=== PATIENT | male | born 1950 | race Caucasian/White ===

== ENCOUNTER 2019-06-25 01:33 | Inpatient (IN) | payer OTHER ==
[~2019-06-25] VITALS: Ht 177.8 cm; Wt 88.5 kg
[2019-06-25] VITALS (8 sets, daily range): BP systolic 76–165; BP diastolic 36–116
[2019-06-25] MEDS ORDERED: ADDERALL 10 MG10 MG PO (01:44)
[2019-06-25] MEDS ORDERED: AMBIEN 10 MG TA10 MG PO (01:45)
[2019-06-25 02:09] LABS: BASOPHILS 0.8 % (0.0-2.0); HEMATOCRIT 47.2 % (42.0-52.0); HEMOGLOBIN 16.2 gm/dL (14.0-18.0); LYMPHOCYTES 18.6 % (24.0-44.0); MCH 30.7 pg (26.0-34.0); MCHC 34.4 g/dL (28.0-37.0); MCV 89.2 fL (80.0-100.0); MONOCYTES 8.5 % (1.0-8.0); PLATELET COUNT 258 thou/uL (150-400); POLYS 71.1 % (36.0-66.0); RBC 5.29 mil/uL (4.50-6.00); WBC 11.3 thou/uL (4.0-11.0)
[2019-06-25 02:15] LABS: ANION GAP 12 mmol/L (7-16); BUN 20 mg/dL (7-18); CHLORIDE 101 mmol/L (98-107); CO2 25 mmol/L (21-32); CREATININE 1.5 mg/dL (0.7-1.3); GLUCOSE 98 mg/dL (74-106); SODIUM 138 mmol/L (136-145)
[2019-06-25 02:21] LABS: ALBUMIN 4.3 g/dL (3.4-5.0); DIRECT BILIRUBIN < 0.1 mg/dL (<0.1-0.3); LIPASE 179 U/L (73-393); SGOT 33 U/L (15-37); SGPT 28 U/L (30-65); TOTAL BILIRUBIN 0.4 mg/dL (<0.1-1.0); TOTAL PROTEIN 8.3 g/dL (6.4-8.2)
[2019-06-25 03:13] LABS: URINE BILIRUBIN NEGATIVE (Negative); URINE BLOOD NEGATIVE (Negative); URINE CLARITY CLEAR; URINE COLOR YELLOW; URINE GLUCOSE-RANDOM* NEGATIVE (Negative); URINE KETONES NEGATIVE (Negative); URINE LEUKOCYTES-REFLEX NEGATIVE (Negative); URINE NITRITE-REFLEX NEGATIVE (Negative); URINE PROTEIN (DIPSTICK) NEGATIVE (Negative); URINE SPECIFIC GRAVITY 1.015 (1.005-1.035); URINE UROBILINOGEN 0.2 E.U./dl (0.2-1.0)
[2019-06-25 03:29] LABS: LARGE PLATELETS FEW
[2019-06-25] MEDS ORDERED: KRISTALOSE20 GM PO (04:04)
--- NOTE | 2019-06-25 07:03 | NUR ---
Pt arrived on unit from ED @0610 via WC accompanied by staff. A/OX4, oriented to the room and made comfortable. C/o abd pain, orders obtained for pain meds awaiting pharmacy verification. Pt is up ad rommel encouraged to call for assistance as needed and agrees to do so. Call light/personal items placed within reach.
--- NOTE | 2019-06-25 09:42 | NUR ---
CONSULT [phone] COMPLETED. THIS [employer] ARCHITECT MET THE PATIENT. WE DID LIFE REVIEW ABOUT HIS LIFE AND FAMILY. WE DISCUSSED SOME DIFFERENT ISSUES. WE CONCLUDED N TD.
--- NOTE | 2019-06-25 11:31 | NUR ---
TOOK OVER CARE APPROX. 0700. A&OX4. PATIENT ON CLEAR LIQUIDS AND CAN ADVANCE TOLERATED. WILL HAVE COLONOSCOPY TOMORROW AND WILL BE NPO OF MIDNIGHT. PATIENT IS ANXIOUS ABOUT HIS CURRENT ILLNESS AND IS ASKING MANY QUESTIONS ABOUT PAIN MANGMENT AND HOW CARE WILL PROCEED. REFUSED FLU VACCINE.
--- NOTE | 2019-06-25 14:02 | NUR ---
PT ADMITTED RELATED TO ABD PAIN, N/V. CM REVIEWED CHART AND SPOKE WITH CARE TEAM. CM MET WITH PT AT BEDSIDE THIS DAY. PT IS A&O X4. CM ROLE INTRODUCED. PT INDICATED HE LIVES IN A CONDO WITH HIS SIG OTHER WITH ELEVATOR ACCESS. PT INDICATED HE HAD BEEN INDEPDENENT WITH GAIT AND ADLS [employer] PROFESSION[employer]. PT INDICATED HE PLANS TO RETURN HOME ONCE MEDICALLY STABLE. CM TO FOLLOW INDICATED WITH DC PLANNING.
--- NOTE | 2019-06-26 03:04 | NUR ---
ASSUMED CARE OF PT @1900 PT ASSESSED AT START OF SHIFT. ON CLEAR LIQUIDS AND NPO AT MIDNIGHT FOR A COLONOSCOPY IN THE AM. PT AMBULATING IN THE HALLWAY. NICOTINE PATCH INTACT IN RT ARM. NEW IV INSERTED 20 GUAGE IN RT FOREARM. PAIN MED GIVEN FOR MANAGEMENT SEE EMAREmanuel DEXTERIEN ALSO GIVEN FOR SLEEP. HOURLY ROUNDING DONE AND WILL CONT WITH POC TILL EOS.
[2019-06-26 08:31] VITALS: BP 135/77
--- NOTE | 2019-06-26 09:03 | NUR ---
Assess due to RD consult received. Admit with n/v and abdominal pain. Diverticulosis without diverticulitis noted. Further workup continues and pt npo for colonoscopy. Has had about 8-10 lb wt loss past month and decreased intake. Will follow up again 06/27 for more complete nutrition evaluation once GI procedure completed.
[2019-06-26 13:16] LABS: CALCIUM 9.1 mg/dL (8.5-10.1); CREATININE 1.2 mg/dL (0.7-1.3); POTASSIUM 3.9 mmol/L (3.5-5.1)
--- NOTE | 2019-06-26 13:30 | NUR ---
ASSUMED CARE OF PT AT 0700. PT PULLED OUT L WRIST IV AND LEFT AMA FOR AN HOUR, WAS ESCORTED BACK TO THE FLOOR BY SECURITY AND TOLD THAT IF IN ORDER TO LEAVE AN AMA FORM NEEDS TO BE FILLED OUT PER DOCTOR. PT WENT TO HAVE A COLONOSCOPY DONE AND WAS GIVEN PAIN MEDICATION BY IM. PT IS A&O X 4. BED IS IN LOWEST POSITION. CALL LIGHT WITHIN REACH. WILL CONTNIUE TO MONITOR THE PT.
[2019-06-26] MEDS ORDERED: TYLENOL325 MG PO (17:04)
[2019-06-26] MEDS ORDERED: PROTONIX40 M1 PO (17:04)
[2019-06-26] MEDS ORDERED: MIRALAX17 GM PO (17:04)
--- NOTE | 2019-06-27 21:24 | P ---
[facility] [place] [address] [place] [address] PROCEDURE REPORT Name: ESTELA VEGA Room #: 434-P [facility] IN M.R.#: [id number] Admission: 06/25/19 Attend Phys: Rosalio Rubi MD Discharge: 06/26/19 Date of : 54 Report #: [id number] THIS REPORT FOR: //name// CC: Rosalio Camarillo MD ESOPHAGOGASTRODUODENOSCOPY WITH BIOPSIES PATIENT OF: Dr. Victorino Camarillo and Dr. Rosalio Rubi. INDICATION FOR PROCEDURE: The patient has right lower quadrant abdominal pain. He is status post appendectomy. He has a history of colonic diverticulosis. Colonoscopy is being performed to evaluate for his moderately severe right lower quadrant pain with rebound. CT scan is unrevealing as to the etiology of these findings. Informed consent for this procedure was obtained prior to the administration of any medication. The risks of the procedure, which include bleeding, perforation, infection, complications of sedation and the possibility I could miss something were explained to the patient and he has indicated his consent by signing. The patient also has epigastric pain. DESCRIPTION OF PROCEDURE: With the patient in the left lateral decubitus position and anesthesia providing adequate deep sedation, the Olympus upper videoscope was introduced through the upper esophageal sphincter and advanced under direct visualization to the third portion of the duodenum. Findings are noted on withdrawal of the scope. The visualized portions of the duodenum appeared normal. Pylorus, normal mucosa. In the antrum, there was a moderately severe erosive hemorrhagic gastritis. Biopsies were obtained x 2 from this area for histopathology. Good hemostasis was noted after the biopsies. Body, normal mucosa. Cardia and fundus, normal mucosa. Retroflex view did not reveal any further abnormalities. The scope was withdrawn to the esophagus. The Z-line was appropriately located at the top of the gastric folds and it was normal. The esophageal mucosa appears normal throughout its entirety. The scope was withdrawn. The patient was turned for colonoscopy. IMPRESSION: Moderately severe erosive hemorrhagic gastritis, biopsies pending. Other than that, normal esophagogastroduodenoscopy to descending duodenum. RECOMMENDATIONS: My recommendations were for him to increase his proton pump inhibitors, Protonix 40 mg p.o. b.i.d. We will await the biopsy results. He may benefit from avoidance of nonsteroidal anti-inflammatory medications and aspirin if possible. [address] [address] PROCEDURE REPORT Name: ESTELA VEGA Merle Room #: 434-P [facility] IN .R.#: [id number] Admission: 06/25/19 Attend Phys: Rosalio Rubi MD Discharge: 06/26/19 Date of : 54 Report #: [id number] Thank you very much once again for allowing me to participate in his care. <ELECTRONICALLY SIGNED> By: Maame Bond DO 06/27/194 36 1412 Maame Bond DO /bao
--- NOTE | 2019-06-27 21:24 | P ---
[facility] [place] [address] [place] [address] PROCEDURE REPORT Name: ESTELA VEGA Room #: 434-P [facility] IN M.R.#: [id number] Admission: 06/25/19 Attend Phys: Rosalio Rubi MD Discharge: 06/26/19 Date of : 54 Report #: [id number] THIS REPORT FOR: //name// CC: Rosalio Camarillo PATIENT OF DOCTORS: Dr. Rosalio Rubi and Dr. Chang Camarillo. PROCEDURE: Colonoscopy with snare polypectomy and biopsies. INDICATION FOR PROCEDURE: Evaluate right lower quadrant abdominal pain. The patient is status post appendectomy. He has a history of colonic diverticulosis. Informed consent for this procedure was obtained prior to the administration any medication. The risks of the procedure include but are not limited to the following: Bleeding, perforation, infection, complications of sedation and the possibility I could miss something. These possible risks were explained to the patient and he has indicated his consent to proceed with colonoscopy. Anesthesia kindly provided deep sedation for this procedure. PROCEDURE IN DETAIL: With the patient in the left lateral decubitus position, digital rectal exam was performed and no abnormalities were palpated. Then, the Olympus colonoscope was introduced through the anal sphincter and advanced under direct visualization to the terminal ileum. Findings were noted on withdrawal of the scope. The terminal ileal mucosa appears normal. In the cecum, there are multiple uncomplicated diverticula noted. There was one 3 mm cecal polyp that was removed with a hot snare and sent to pathology lab. Good hemostasis was noted after that polypectomy. The remaining cecal mucosa appeared normal. Ascending colon, normal mucosa. Hepatic flexure, normal mucosa. Transverse colon, normal mucosa. Splenic flexure, there was a 3 mm polyp in the splenic flexure that was removed in toto with a hot snare and sent to pathology lab. Good hemostasis was noted after that polypectomy. The remaining splenic flexure appeared normal. Descending colon, normal mucosa. Sigmoid colon, at 25 cm in the sigmoid colon, there was a 5 mm sessile polyp that was removed in toto with a hot snare and sent to pathology lab. Good hemostasis was noted after that polypectomy. The remaining sigmoid colon contained multiple uncomplicated diverticula scattered intermittently throughout the entire colon. At 15 cm in the distal sigmoid, there is an irregular appearing 12 mm mass that I removed in 2-3 pieces with a hot snare. These pieces were recovered and sent to pathology lab for analysis. Grossly, it appeared that all the mass was removed, but microscopically I cannot guarantee complete removal. We will have to wait for the path report and the margin assessment. [address] [address] PROCEDURE REPORT Name: ESTELA VEGA Room #: 434-P [facility] IN M.R.#: [id number] Admission: 06/25/19 Attend Phys: Rosalio Rubi MD Discharge: 06/26/19 Date of : 54 Report #: [id number] Also, at 15 cm, there were 3 small polyps, all less than or equal to 5 mm and were removed in toto with a hot snare and sent to pathology lab as well. Good hemostasis was noted after all polypectomies and biopsies. Rectum, normal mucosa. Retroflexed view did not reveal any further abnormalities. The scope was withdrawn. The patient went to the recovery area in stable condition. He tolerated the procedure well. IMPRESSION: 1. Uncomplicated pancolonic diverticulosis. 2. A 3 mm cecal polyp removed from the cecum as above. 3. A 3 mm splenic flexure polyp removed with a hot snare and sent to pathology. 4. A 5 mm sessile polyp at 25 cm, removed in toto with a hot snare and sent to pathology lab. 5. Three small polyps at 15 cm, all less than or equal to 5 mm were removed in too with hot snare and sent to pathology lab. 6. Irregular appearing 12 mm sessile mass at 15 cm was removed in 2 to 3 pieces with hot snare and sent to pathology lab. Grossly, it appears that all this mass was removed, but microscopically I cannot guarantee complete removal. We will have to wait for the path report and the margin assessment. The rectum appeared normal. RECOMMENDATIONS: My recommendations were to await the path report and make further determinations on any future colonoscopies and further treatment for these possibly or potentially premalignant or malignant lesions. Thank you very much once again for allowing me to participate in his care. <ELECTRONICALLY SIGNED> By: Maame Bond DO 06/27/19 [id number] Maame Bond DO /nt
--- NOTE | 2019-06-28 17:06 | PATH ---
[facility] [address] [place] [address] PATHOLOGY RPT PROCEDURE Name: ESTELA COOPER Room #: 434-P [facility] IN M.R.#: [id number] Admission: 06/25/19 Date of : 54 Discharge: 06/26/19 Report #: [id number] Path Case #: [id number] [facility] Accession Number: [id number] . 01 Material submitted: . PART A: stomach - GASTRIC BIOPSY TO R/O H. PYLORI PART B: cecum - POLYP AT CECUM PART C: splenic flexure - POLYP AT SPLENIC FLEXURE PART D: colon - POLYP AT 25CM PART E: colon - POLYP AT 15CM X3 AND SESSILE MASS X1 . 01 Clinical history: . Preop DX: Abdominal pain Postop DX: Duodenitis, moderate erosive gastritis A. r/o h. Pylori . 02 Diagnosis: A. Gastric mucosa, gastric rule out H. pylori, endoscopic biopsy: - Helicobacter pylori induced moderate active gastritis. - Negative for intestinal metaplasia, atrophy or dysplasia. - Mild to moderate number of organisms present on properly controlled immunohistochemical stain. . B. Polyp, at cecum, endoscopic biopsy: - Tubular adenoma. - Negative for high grade dysplasia. . C. Polyp, at splenic flexure, endoscopic biopsy: - Hyperplastic polyp. - Negative for dysplasia. . D. Polyp, at 25 cm, endoscopic biopsy: - Tubular adenoma. - Negative for high grade dysplasia. . E. Polyp x 3 at 15 cm and sessile mass x 1, endoscopic biopsy: - One fragment showing tubular adenoma without high grade dysplasia. - Remainder of fragments showing inflamed hyperplastic polyps without dysplasia. (See comment) LBQ 06/28/2019 1425 Local . 02 Comment: Part E: Tubular adenoma is identified in a 2 mm fragment. Remainder of fragments sampled range from 2 mm to approximately 1.0 cm in greatest dimension. All of the others show hyperplastic polyps with reactive changes. There is no dysplasia within the remainder of the fragments. (IUV/db; 06/28/2019) [address] [address] PATHOLOGY RPT PROCEDURE Name: ESTELA COOPER Room #: 434-P [facility] IN M.R.#: [id number] Admission: 06/25/19 Date of : 54 Discharge: 06/26/19 Report #: [id number] Path Case #: [id number] . 02 Electronically signed: . Arabella Nelson MD, Pathologist NPI- [id number] . 01 Gross description: . A. Received in formalin labeled "Estela Cooper, gastric biopsy to r/o h. pylori," are two segments of ny-brown soft tissue measuring 0.2 x 0.2 x 0.1 cm and 0.4 x 0.3 x 0.2 cm in greatest dimensions. The specimen is submitted entirely in cassette A1. . B. Received in formalin labeled "Estela Cooper, polyp at cecum," is a segment of ny soft tissue measuring 0.5 x 0.2 x 0.2 cm in greatest dimensions admixed with dark brown vegetative material. The specimen is submitted entirely in cassette B1. . C. Received in formalin labeled "Estela Cooper, polyp at splenic flexure," is a segment of ny soft tissue measuring 0.4 x 0.3 x 0.3 cm in greatest dimensions admixed with scant dark brown vegetative material. The specimen is submitted entirely in cassette C1. . D. Received in formalin labeled "Estela Cooper, polyp at 25 cm," are two segments of ny soft tissue measuring 0.2 x 0.2 x 0.1 cm and 0.3 x 0.3 x 0.2 cm in greatest dimensions admixed with scant dark brown vegetative material. The specimen is submitted entirely in cassette D1. . E. The specimen is received in formalin labeled "Estela Cooper, polyp at 15 cm". The specimen source is listed on the requisition as "polyp at 15 cm x3 and sessile mass x1". Received are two polypoid segments of ny-brown soft tissue measuring 1.0 x 0.4 x 0.4 cm (inked yellow) and 1.0 x 0.7 x 0.5 cm (inked black) admixed with a 2.6 x 1.0 x 0.2 cm aggregate of smaller ny soft tissue fragments and green-brown vegetative material. The inked tissue segments are sectioned and submitted entirely in cassette E1. The remaining material is submitted entirely in cassette E2. (DAC; 06/27/2019) XDC/XDC 06/27/2019 1353 Local . 02 Pathologist provided ICD-10: K29.50, D12.0, K63.5, D12.6 . 02 CPT . 875131, 322666, 273006, 538593, 096103, [id number] Specimen Comment: A courtesy copy of this report has been sent to [phone], [phone] Specimen Comment: [phone], Specimen Comment: Report sent to ,DR PEREZ / DR LYON Performed at: [address] [facility] [address] [place] [address] PATHOLOGY RPT PROCEDURE Name: ESTELA COOPER Room #: 434-P [facility] IN M.R.#: [id number] Admission: 06/25/19 Date of : 54 Discharge: 06/26/19 Report #: [id number] Path Case #: [id number] [address] [facility] [address], [place], [place] [id number] MD Paxton Knox MD Phone: [phone] Performed at: [address] [id number] MD Arabella Nelson MD Phone: [phone]
== END 2019-06-26 19:32 | disposition home or self-care (01) | DRG 377 ==
LOC: ER 01:33 → 4S 05:10 → EROBS 05:10 → 4S 05:58
PROVIDERS: Emergency Medicine; ADMIT Hospitalist
PROC: 0DB68ZX Excision of Stomach, Via Natural or Artificial Opening Endoscopic, Diagnostic (ICD-10-PCS; principal; 2019-06-25)
PROC: 0DBL8ZZ Excision of Transverse Colon, Via Natural or Artificial Opening Endoscopic (ICD-10-PCS; principal; 2019-06-25)
PROC: 0DBN8ZZ Excision of Sigmoid Colon, Via Natural or Artificial Opening Endoscopic (ICD-10-PCS; principal; 2019-06-25)
PROC: 0DBH8ZZ Excision of Cecum, Via Natural or Artificial Opening Endoscopic (ICD-10-PCS; principal; 2019-06-25)
DX: K29.01 Acute gastritis with bleeding (principal); N17.0 Acute kidney failure with tubular necrosis; D12.5 Benign neoplasm of sigmoid colon; K57.30 Diverticulosis of large intestine without perforation or abscess without bleeding; F17.210 Nicotine dependence, cigarettes, uncomplicated; K58.9 Irritable bowel syndrome, unspecified; K21.9 Gastro-esophageal reflux disease without esophagitis; F90.9 Attention-deficit hyperactivity disorder, unspecified type; K59.00 Constipation, unspecified; F12.10 Cannabis abuse, uncomplicated; Z79.899 Other long term (current) drug therapy; Z90.49 Acquired absence of other specified parts of digestive tract; Z87.11 Personal history of peptic ulcer disease; Z71.6 Tobacco abuse counseling; Z71.51 Drug abuse counseling and surveillance of drug abuser
CPT/HCPCS: 10195; 62110; 62900; 70005